=== PATIENT | male | born 2000 | race Caucasian/White ===

== ENCOUNTER 2020-04-18 03:37 | Emergency (ER) | payer SELFPAY ==
[~2020-04-18] VITALS: Ht 180.3 cm; Wt 75.0 kg
[2020-04-18 03:37] VITALS: BP 124/82
--- NOTE | 2020-04-18 03:37 | NUR ---
INITIAL PT CONTACT. PT PRESENTS TO ED VIA EMS C/O RIGHT EYE LACERATION. PT STATES HE WAS "TRYING TO TAKE HIS CONTACTS OUT AND COULDNT GET IT SO KEPT TRYING, THEN MY EYE STARTED TO BLEED." ETOH TODAY. PT SITTING UPRIGHT, TEARFUL. NO ADDITIONAL NEEDS AT THIS TIME. CALL LIGHT AND BELONGINGS WITHIN REACH. ERP AT BEDSIDE
[2020-04-18] MEDS ORDERED: PROPARACAINE OPHTH 0.5%, 15ML ONE (03:45)
[2020-04-18] MEDS ORDERED: FLUORESCEIN OPHTHALMIC 1 MG STRIP ONE (03:46)
--- NOTE | 2020-04-18 04:59 | NUR ---
Patient given discharge instructions and they have confirmed that they understand the instructions. Patient ambulatory with steady gait.
== END 2020-04-18 05:10 | disposition home or self-care (01) ==
LOC: ED 05:00
DX: S05.31XA Ocular laceration without prolapse or loss of intraocular tissue, right eye, initial encounter (principal); X58.XXXA Exposure to other specified factors, initial encounter; Y93.89 Activity, other specified; Y92.89 Other specified places as the place of occurrence of the external cause; Y99.8 Other external cause status
CPT/HCPCS: 99283